=== PATIENT | female | born 1965 | race Caucasian/White ===

== ENCOUNTER 2020-07-02 08:43 | Outpatient (CLI) | payer BC, SELFPAY ==
--- NOTE | ~2020-07-02 | US_ITS ---
US abdomen complete EXAMINATION: US Abdomen Complete INDICATION: Leukopenia PROCEDURE: Realtime High Resolution abdomen ultrasound. COMPARISON: No prior studies for comparison FINDINGS: Gallbladder within normal limits. No gallstones, pericholecystic fluid, gallbladder wall t hickening or biliary dilatation. Common bile duct measures 5 mm. Liver echotexture within normal limits without focal mass. Pancreas within normal limits. Pancreati c tail is obscured by bowel gas. Spleen is unremarkeable. Renal echotexture is within normal limits bilaterally without hydronephrosis, contour deforming mass or renal stone. Right kidney measures 10.3 cm. Left kidney measures 12.6 cm. Visualized aspects of the aorta and IVC are within normal limits. Portal vein is patent. No sonograph ic Paredes's sign indicated by the technologist. IMPRESSION: 1: Normal abdominal ultrasound. Reviewed, dictated and finalized at location B.
== END 2020-07-02 08:44 | disposition home or self-care (01) ==
PROVIDERS: PCP Family Medicine; Visit Provider Internal Medicine Hematology & Oncology
DX: D72.819 Decreased white blood cell count, unspecified (principal)
CPT/HCPCS: 76700

== ENCOUNTER → 2021-05-23 15:04 | Outpatient (CLI) | payer BC, SELFPAY ==
--- NOTE | ~2021-05-23 | MM_ITS ---
EXAMINATION: MM screening oralia BI w josé HISTORY: Screening mammogram TECHNIQUE: Craniocaudal and mediolateral oblique 3-D tomosynthesis images were obtained and synthetic 2-D images were generated. CAD analysis was submitted and interpreted. COMPARISON: 07/03/2019 bilateral digital screening mammogram 06/13/2018 diagnostic right mammogram 06/02/2018 bilateral digital screening mammogram BREAST PARENCHYMAL COMPOSITION: There are scattered areas of fibroglandular density. FINDINGS: There is no evidence of suspicious mass, calcification, or architectural distortion to sugg est malignancy in either breast. There has been no suspicious interval change. IMPRESSION: 1. No mammographic evidence of malignancy. 2. Recommend routine screening mammography in one year. BI-RADS Category 1: Negative Reviewed, dictated and finalized at location A.
== END ==
PROVIDERS: PCP Family Medicine; Visit Provider Family Medicine
DX: Z12.31 Encounter for screening mammogram for malignant neoplasm of breast (principal)
CPT/HCPCS: 77063; 77067

== ENCOUNTER → 2023-01-05 13:25 | Outpatient (CLI) | payer BC, SELFPAY ==
--- NOTE | ~2023-01-05 | MM_ITS ---
EXAMINATION: MM screening oralia BI w josé HISTORY: Screening mammogram TECHNIQUE: Craniocaudal and mediolateral oblique 3-D tomosynthesis images were obtained and synthetic 2-D images were generated. CAD analysis was submitted and interpreted. COMPARISON: 05/23/2021, 07/03/2019 bilateral screening mammogram examinations BREAST PARENCHYMAL COMPOSITION: There are scattered areas of fibroglandular density. FINDINGS: There is no evidence of suspicious mass, calcification, or architectural distortion to sugg est malignancy in either breast. There has been no suspicious interval change. IMPRESSION: 1. No mammographic evidence of malignancy. 2. Recommend routine screening mammography in one year. BI-RADS Category 1: Negative Reviewed, dictated and finalized at location A.
== END ==
PROVIDERS: PCP Nurse Practitioner; Visit Provider Nurse Practitioner
DX: Z12.31 Encounter for screening mammogram for malignant neoplasm of breast (principal)
CPT/HCPCS: 77063; 77067

== ENCOUNTER 2024-03-14 13:23 | Outpatient (CLI) | payer BC, SELFPAY ==
--- NOTE | ~2024-03-14 | MMUS_ITS ---
EXAMINATION: MM diagnostic oralia BI w josé, US breast RT limited HISTORY: Palpable lump right breast TECHNIQUE: 3-D tomosynthesis images of the bilateral breasts were performed and synthetic 2-D images were generated. CAD analysis was submitted and interpreted. High resolution limited right breast ultr asound was performed. COMPARISON: 01/05/2023, 05/23/2021 BREAST PARENCHYMAL COMPOSITION:Not Dense. There are scattered areas of fibroglandular density. FINDINGS: MAMMOGRAPHIC FINDINGS: Parenchymal pattern of the breasts is unchanged. No suspicious mass lesion or distortion seen. No sung picious microcalcifications. No suspicious interval change. ULTRASOUND: Sonographic imaging performed at the 11:00-12:00 position right breast, 8 cm from the nipple. No uyen d or cystic lesion identified. No sonographic correlate for the area of palpable concern. IMPRESSION: No evidence for malignancy. No mammographic or sonographic correlate seen at the area of clinical con cern at the upper right breast. BI-RADS Category 1: Negative Reviewed, dictated and finalized at [facility]. IMPRESSION: No evidence for malignancy. No mammographic or sonographic correlate seen at e area of clinical concern at the upper right breast. BI-RADS Category 1: Negative
== END 2024-03-14 13:24 ==
LOC: MICIMG 13:24
PROVIDERS: PCP Nurse Practitioner; Visit Provider Nurse Practitioner
DX: N63.10 Unspecified lump in the right breast, unspecified quadrant (principal)
CPT/HCPCS: 76642; 77062; 77066; G0279

== ENCOUNTER 2024-11-27 11:15 | Outpatient (CLI) | payer BC, SELFPAY ==
--- NOTE | ~2024-11-27 | MMUS_ITS ---
EXAMINATION: MM diagnostic oralia RT w josé, US breast RT limited HISTORY: Palpable right breast abnormality TECHNIQUE: Additional 3-D tomosynthesis images of the right breast were performed and synthetic 2-D i mages were generated. CAD analysis was submitted and interpreted. High resolution Limited right breas t ultrasound was performed. COMPARISON: Comparison to multiple prior studies sequentially, with oldest reviewed study dated 06/02. BREAST PARENCHYMAL COMPOSITION: Not dense: There are scattered areas of fibroglandular density. FINDINGS: MAMMOGRAPHIC FINDINGS: There are no suspicious masses, calcifications or architectural distortion in the right breast to sug gest malignancy. ULTRASOUND: Limited right breast ultrasound: Normal heterogeneous echotexture without focal solid or cystic mass. IMPRESSION: 1. No evidence for malignancy in the right breast. 2. Routine yearly screening mammogram and regular clinical breast examination are recommended. BI-RADS Category 1: Negative Reviewed, dictated and finalized at location B. IMPRESSION: 1. No evidence for malignancy in the right breast. 2. Routine yearly screening mammogram and regular clinical breast examination a re recommended. BI-RADS Category 1: Negative
== END 2024-11-27 11:16 | disposition home or self-care (01) ==
LOC: MICIMG 11:16
PROVIDERS: PCP Nurse Practitioner; Visit Provider Nurse Practitioner
DX: R92.8 Other abnormal and inconclusive findings on diagnostic imaging of breast (principal); N63.10 Unspecified lump in the right breast, unspecified quadrant
CPT/HCPCS: 76642; 77061; 77065; G0279

== ENCOUNTER 2025-05-03 14:00 | Outpatient (CLI) | payer BC, SELFPAY ==
--- NOTE | ~2025-05-03 | MM_ITS ---
EXAMINATION: MM screening oralia BI w josé HISTORY: Screening mammogram, family history of breast cancer in her mother. TECHNIQUE: Craniocaudal and mediolateral oblique 3-D tomosynthesis images were obtained and synthetic 2-D images were generated. CAD analysis was submitted and interpreted. COMPARISON: 11/27/2024, 03/14/2024, 01/05/2023, 05/23/2021 BREAST PARENCHYMAL COMPOSITION:Not Dense. There are scattered areas of fibroglandular density. FINDINGS: No suspicious mass, calcification, or architectural distortion are identified in either breast to suggest malignancy. There has been no suspicious interval change. IMPRESSION: No mammographic evidence of malignancy. Recommend routine screening mammography in one year. BI-RADS Category 1: Negative Reviewed, dictated and finalized at [facility].
== END 2025-05-03 14:01 | disposition home or self-care (01) ==
LOC: MICIMG 14:00
PROVIDERS: PCP Nurse Practitioner; Visit Provider Nurse Practitioner
DX: Z12.31 Encounter for screening mammogram for malignant neoplasm of breast (principal)
CPT/HCPCS: 77063; 77067